=== PATIENT | male | born 1995 | race Caucasian/White ===

== ENCOUNTER 2018-03-23 07:43 | Emergency (ER) | payer OTHER ==
[~2018-03-23] VITALS: Ht 175.3 cm; Wt 66.0 kg
[2018-03-23] MEDS ORDERED: ZOLP10TA PO (08:03)
[2018-03-23] MEDS ORDERED: SERT100T PO (08:03)
[2018-03-23] MEDS ORDERED: CLON0.5T PO (08:03)
[2018-03-23] MEDS ORDERED: DIAZEPAM 5 MG TABLET ONE (08:28)
[2018-03-23] MEDS ORDERED: OXYcodone/APAP 5/325MG TABLET ONE (08:28)
[2018-03-23] MEDS ORDERED: KETOROLAC 30 MG/1 ML ONE (08:28)
[2018-03-23] MEDS ORDERED: DIAZEPAM 5 MG TABLET PO ONE (08:30)
[2018-03-23] MEDS ORDERED: KETOROLAC 30 MG/1 ML IM ONE (08:30)
[2018-03-23] MEDS ORDERED: OXYcodone/APAP 5/325MG TABLET PO ONE (08:30)
[2018-03-23 09:04] VITALS: BP 118/71
== END 2018-03-23 09:30 | disposition home or self-care (01) ==
LOC: ED 09:24
DX: G89.29 Other chronic pain (principal); M54.5 Low back pain
CPT/HCPCS: 96372; 99283; J1885